=== PATIENT | male | born 1985 | race Two or more races ===

== ENCOUNTER 2018-10-28 16:29 | Emergency (ER) | payer MEDICAID ==
[~2018-10-28] VITALS: Ht 182.9 cm; Wt 104.3 kg
[2018-10-28 16:45] VITALS: BP 170/96
== END 2018-10-28 21:41 | disposition left against medical advice (07) ==
LOC: ER 16:31
DX: R06.02 Shortness of breath (principal); Z53.21 Procedure and treatment not carried out due to patient leaving prior to being seen by health care provider
CPT/HCPCS: 71046; 93005